=== PATIENT | female | born 1940 | race Caucasian/White ===

== ENCOUNTER 2024-03-28 15:25 | Emergency (ER) | payer MEDICARE, BC ==
[~2024-03-28] VITALS: Ht 165.1 cm; Wt 78.5 kg
[2024-03-28] MEDS ORDERED: ATOR10TA (15:36)
[2024-03-28] MEDS ORDERED: SEVE800T8 (15:36)
[2024-03-28] MEDS ORDERED: FURO40TA5 PO (15:36)
[2024-03-28] MEDS ORDERED: GABA-532 PO (15:36)
[2024-03-28] MEDS ORDERED: MINO2.5T PO (15:36)
[2024-03-28] MEDS ORDERED: ZOLP5TAB8 PO (15:36)
[2024-03-28] MEDS ORDERED: CARV25TA2 PO (15:36)
[2024-03-28] MEDS ORDERED: TACR0.5C4 PO (15:36)
[2024-03-28] MEDS ORDERED: INSU3INS8 (15:36)
[2024-03-28] MEDS ORDERED: HYDR100T27 PO (15:36)
[2024-03-28 18:35] LABS: BASOPHILS % (AUTO) 0.4 % (0.0-2.0); EOSINOPHILS # (AUTO) 0.2 K/uL (0.0-0.7); EOSINOPHILS % (AUTO) 2.5 % (0.0-7.0); HEMATOCRIT 28.7 % (31.2-41.9); HEMOGLOBIN 9.6 g/dL (10.9-14.3); LYMPHOCYTES # (AUTO) 1.5 K/uL (0.8-4.8); LYMPHOCYTES % (AUTO) 16.3 % (20.5-51.5); MEAN CORPUSCULAR HEMOGLOBIN 28.9 uug (24.7-32.8); MEAN CORPUSCULAR HGB CONC 33 g/dL (32.3-35.6); MEAN CORPUSCULAR VOLUME 86.6 fL (75.5-95.3); MONOCYTES # (AUTO) 0.8 K/uL (0.1-1.30); MONOCYTES % (AUTO) 8.1 % (0.0-11.0); NEUTROPHILS # (AUTO) 6.9 K/uL (1.8-8.9); NEUTROPHILS % (AUTO) 72.7 % (38.5-71.5); PLATELET COUNT (AUTO) 286 K/uL (179-408); RED BLOOD CELL COUNT(AUTO) 3.31 MIL/uL (3.63-4.92); RED CELL DISTRIBUTION WIDTH 16.6 % (12.3-17.7); WHITE BLOOD COUNT (AUTO) 9.4 K/uL (3.8-11.8)
[2024-03-28 18:46] LABS: DIFFERENTIAL COMMENT 1
[2024-03-28 18:48] LABS: CALCIUM 8.6 mg/dL (8.5-10.1); CARBON DIOXIDE 31 mmol/L (21-32); CHLORIDE 95 mmol/L (98-107); CREATININE 3.4 mg/dL (0.6-1.3); GLUCOSE 163 mg/dL (74-106); POTASSIUM 3.8 mmol/L (3.5-5.1); SODIUM SERUM 136 mmol/L (136-145); UREA NITROGEN, BLOOD 19 mg/dL (7-18)
[2024-03-28 19:10] LABS: ALANINE AMINOTRANSFERASE 12 U/L (14-59); ALBUMIN 3.1 g/dL (3.4-5.0); ALKALINE PHOSPHATASE 85 U/L (50-136); ASPARTATE AMINOTRANSFERASE 26 U/L (15-37); BILIRUBIN,DIRECT 0.1 mg/dL (0.0-0.2); BILIRUBIN,TOTAL 0.5 mg/dL (0.2-1.0); NT-PRO BNP 1656 pg/mL (0-125); TOTAL PROTEIN, SERUM 6.6 g/dL (6.4-8.2)
[2024-03-29 00:02] VITALS: BP 139/93; O2SAT 97
== END 2024-03-28 23:33 | disposition home or self-care (01) ==
LOC: ER 15:26
DX: I95.3 Hypotension of hemodialysis (principal); R51.9 Headache, unspecified; D64.9 Anemia, unspecified; E11.22 Type 2 diabetes mellitus with diabetic chronic kidney disease; N18.6 End stage renal disease; Z79.899 Other long term (current) drug therapy
CPT/HCPCS: 36415; 70450; 71045; 83605; 84484; 85025; 85730; 86850; 86900; 86901; 87040; 93005; A4606; A4663